=== PATIENT | female | born 1970 | race American Indian/Alaskan Native ===

== ENCOUNTER 2017-03-22 08:26 | Outpatient (CLI) | payer BC ==
[2017-03-22 09:06] LABS: Alanine Aminotransferase 8 units/L (7-56); Albumin 4.1 g/dL (3.9-5); Albumin/Globulin Ratio 1.3 %; Alkaline Phosphatase 47 units/L (35-129); Anion Gap 15 mmol/L; Blood Urea Nitrogen 9 mg/dL (7-17); Calcium 9.2 mg/dL (8.4-10.2); Carbon Dioxide 27 mmol/L (22-30); Chloride 102.7 mmol/L (98-107); Cholesterol 144 mg/dL (50-199); Glucose 101 mg/dL (65-100); HDL Cholesterol 69 mg/dL (40-59); LDL Cholesterol,Direct 66 mg/dL (50-130); Potassium 4.1 mmol/L (3.6-5.0); Sodium 141 mmol/L (137-145); Total Protein 7.3 g/dL (6.3-8.2); Triglycerides 48 mg/dL (2-149)
== END 2017-03-22 08:27 | disposition home or self-care (01) ==
LOC: LAB 08:26
PROVIDERS: ATTEND Family Medicine
DX: I10 Essential (primary) hypertension (principal)
CPT/HCPCS: 36415; 80053; 80061

== ENCOUNTER 2018-04-22 08:12 | Outpatient (CLI) | payer BC ==
--- NOTE | 2018-04-22 14:02 | Mammography Report ---
BILATERAL DIGITAL SCREENING MAMMOGRAM with CAD: 04/22/18 08:12:00 CLINICAL: Routine screening. COMPARISON:12/28/14 and 11/25/11 FINDINGS: The breasts are heterogeneously dense, which may obscure small masses. Bilateral parenchymal asymmetries require additional imaging.No architectural distortion or suspicious calcifications. IMPRESSION: Bilateral asymmetries requiring further workup. BI-RADS CATEGORY: 0 -- Additional Imaging Evaluation Required RECOMMENDATION: Recall for bilateral lateralmedial , spot and spot pression CC and MLO views and bilateral breast ultrasound if needed. ACR BI-RADS MAMMOGRAPHIC CODES: 0 = Needs additional imaging evaluation; 1 = Negative; 2 = Benign; 3 = Probably benign; 4 = Suspicious; 5 = Malignant; 6 = Known biopsy-proven malignancy COMMENT: 1. Dense breast tissue, i.e., adenosis, fibrocystic changes, etc., may obscure an underlying neoplasm. 2. Approximately 10% of cancers are not detected with mammography. 3. A negative mammography report should not delay biopsy if a clinically suspicious mass is present. COMMENT: Patient follow-up letters are generated via our [employer] application.
== END 2018-04-22 08:13 | disposition home or self-care (01) ==
LOC: MAMMO 08:12
PROVIDERS: ATTEND Family Medicine
DX: Z12.31 Encounter for screening mammogram for malignant neoplasm of breast (principal)
CPT/HCPCS: 77067

== ENCOUNTER 2018-04-28 12:45 | Outpatient (CLI) | payer BC ==
--- NOTE | 2018-04-28 14:51 | Ultrasound Report ---
Spot compression views of densities right and left breast and bilateral global sonogram: Spot compression views of density at the 12:00 position and density at 1:00 position left breast reveals persistence of density at 12:00 position however no density at 1:00 is visualized . Spot compression views of density right breast at Outer and inner breast and upper breast reveal reveals no evidence of mass or microcalcification. Sonographic examination reveals a simple cyst measuring 0.6 x 0.5 x 0.7 cm in diameter at 12:00 position 7 cm from nipple right breast. There is a simple cyst measuring 1.05 x 0.48 x 0.49 cm at 8:00 position 6 cm from nipple at the right breast. Sonogram of left breast reveals a simple cyst measuring 0.6x 0.45 x 0.6 cm at 2:00 o'clock 9 cm from nipple. There is simple cyst measuring 1.1 x 0.8 x 1.1 cm in diameter at 11:00 position 8 cm from nipple left breast. Impression Benign cysts at right and left breast. Appear to correspond to the density seen on mammogram. Annual followup with mammogram and if necessary sonogram recommended. BI-RADS CATEGORY: 2 = Benign ACR BI-RADS MAMMOGRAPHIC CODES: 0 = Needs additional imaging evaluation; 1 = Negative; 2 = Benign; 3 = Probably benign; 4 = Suspicious; 5 = Malignant; 6 = Known biopsy-proven malignancy COMMENT: 1. Dense breast tissue, i.e., adenosis, fibrocystic changes, etc., may obscure an underlying neoplasm. 2. Approximately 10% of cancers are not detected with mammography. 3. A negative mammography report should not delay biopsy if a clinically suspicious mass is present. COMMENT: Patient follow-up letters are generated in [employer].
== END 2018-04-28 12:46 | disposition home or self-care (01) ==
LOC: MAMMO 12:45
PROVIDERS: ATTEND Family Medicine
DX: N60.02 Solitary cyst of left breast (principal); N60.01 Solitary cyst of right breast
CPT/HCPCS: 77066

== ENCOUNTER 2018-09-09 08:12 | Outpatient (CLI) | payer BC ==
--- NOTE | 2018-09-10 06:47 | Vascular Lab Report ---
PROCEDURE: US BILATERAL LOWER EXTREMITY VENOUS DUPLEX DOPPLER TECHNIQUE: Duplex Doppler ultrasound of the bilateral common and superficial femoral, popliteal, pos terior tibial, and proximal deep femoral and greater saphenous veins was attempted. [place] scale imagin g with and without compression, spectral waveform analysis with and without augmentation, and color f low Doppler were employed. HISTORY: Pain and swelling COMPARISONS: None . FINDINGS: Right leg: Deep Venous Thrombus: None . Superficial Venous Thrombus: None . Venous valvular incompetence: Deep venous reflux at the right common femoral vein at 2025 ms . Soft tissue abnormality: None . Other: None . Left leg: Deep Venous Thrombus: None . Superficial Venous Thrombus: None . Venous valvular incompetence: Deep venous reflux in the left common femoral vein at 1725 ms. Superfi cial venous reflux in the left saphenofemoral junction at 692 ms and left greater saphenous vein at 2 142 ms. Soft tissue abnormality: None . Other: Left greater saphenous vein diameter measures 6.2 mm in the proximal thigh, 5.2 mm in the mid thigh, 4.2 mm in the distal thigh, 4 mm at the knee, 3.7 mm at the proximal calf, 2.7 mm at the mid calf, 2.3 mm at the distal calf and 3.2 mm at the ankle. . IMPRESSION: No evidence of deep venous thrombosis . There is deep venous reflux in the common femoral veins bilaterally. There is superficial venous reflux in the left saphenofemoral junction and greater saphenous vein. This document is electronically signed by Jerome Dixon MD., September 10 2018 06:45:05 AM [email or web address]
== END 2018-09-09 08:13 | disposition home or self-care (01) ==
LOC: VAS 08:12
PROVIDERS: ATTEND Radiology Diagnostic Radiology
DX: I87.323 Chronic venous hypertension (idiopathic) with inflammation of bilateral lower extremity (principal)
CPT/HCPCS: 93970

== ENCOUNTER 2019-07-14 08:40 | Outpatient (CLI) | payer BC ==
[2019-07-14 08:56] LABS: Hematocrit 39.5 % (30.3-42.9); Hemoglobin 12.6 gm/dl (10.1-14.3); Mean Corpuscular HGB Conc 32 % (30-34); Mean Corpuscular Volume 77 fl (79-97); Platelet Count 221 K/mm3 (140-440); Red Blood Count 5.12 M/mm3 (3.65-5.03); Red Cell Distribution Width 17.1 % (13.2-15.2)
[2019-07-14 09:25] LABS: Alanine Aminotransferase 10 units/L (7-56); BUN/Creatinine Ratio 10; Blood Urea Nitrogen 7 mg/dL (7-17); Calcium 9.3 mg/dL (8.4-10.2); Chol/HDL Ratio 2.96 %; HDL Cholesterol 53 mg/dL (40-59); Hemolysis Index 2; LDL Cholesterol,Direct 98 mg/dL (50-130)
== END 2019-07-14 08:41 | disposition home or self-care (01) ==
LOC: LAB 08:40
PROVIDERS: ATTEND Family Medicine
DX: Z00.00 Encounter for general adult medical examination without abnormal findings (principal)
CPT/HCPCS: 36415; 80053; 80061; 83036; 84443; 85027

== ENCOUNTER 2019-08-15 15:02 | Outpatient (CLI) | payer BC ==
--- NOTE | 2019-08-15 15:46 | XRay Report ---
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 COMPARISON: None available. FINDINGS: No fracture or other significant abnormality. Signer Name: Juaquin Hernandez MD Signed: 08/15/2019 3:42 PM Workstation Name: [id number]
== END 2019-08-15 15:03 | disposition home or self-care (01) ==
LOC: XRAY 15:02
PROVIDERS: ATTEND Podiatrist Foot & Ankle Surgery
DX: D49.2 Neoplasm of unspecified behavior of bone, soft tissue, and skin (principal); G60.8 Other hereditary and idiopathic neuropathies

== ENCOUNTER 2020-03-20 15:45 | Outpatient (CLI) | payer BC ==
[2020-03-20 16:17] LABS: Basophils % (Auto) 0.4 % (0.0-1.8); Eosinophils # (Auto) 0.3 K/mm3 (0.0-0.4); Eosinophils % (Auto) 3.6 % (0.0-4.3); Hematocrit 38.2 % (30.3-42.9); Hemoglobin 12.2 gm/dl (10.1-14.3); Lymphocytes # (Auto) 2.7 K/mm3 (1.2-5.4); Lymphocytes % (Auto) 34.4 % (13.4-35.0); Mean Corpuscular HGB Conc 32 % (30-34); Mean Corpuscular Volume 78 fl (79-97); Monocytes # (Auto) 0.5 K/mm3 (0.0-0.8); Monocytes % (Auto) 6.4 % (0.0-7.3); Platelet Count 243 K/mm3 (140-440); Red Blood Count 4.91 M/mm3 (3.65-5.03); Red Cell Distribution Width 17.1 % (13.2-15.2)
[2020-03-20 16:42] LABS: Alanine Aminotransferase 11 units/L (7-56); Albumin 4.6 g/dL (3.9-5); Blood Urea Nitrogen 10 mg/dL (7-17); Calcium 9.7 mg/dL (8.4-10.2); Chol/HDL Ratio 3.21 %; HDL Cholesterol 61 mg/dL (40-59); Hemolysis Index 0; LDL Cholesterol,Direct 114 mg/dL (50-130)
[2020-03-20 16:46] LABS: BUN/Creatinine Ratio 17
== END 2020-03-20 15:46 | disposition home or self-care (01) ==
LOC: LAB 15:45
PROVIDERS: ATTEND Physician Assistant
DX: I10 Essential (primary) hypertension (principal)
CPT/HCPCS: 36415; 80053; 80061; 85025

== ENCOUNTER 2020-07-10 08:34 | Outpatient (CLI) | payer BC ==
[2020-07-10 10:02] LABS: Basophils % (Auto) 0.5 % (0.0-1.8); Eosinophils # (Auto) 0.2 K/mm3 (0.0-0.4); Eosinophils % (Auto) 3.2 % (0.0-4.3); Hematocrit 34.9 % (30.3-42.9); Hemoglobin 11.8 gm/dl (10.1-14.3); Lymphocytes % (Auto) 33.8 % (13.4-35.0); Mean Corpuscular HGB Conc 34 % (30-34); Mean Corpuscular Volume 76 fl (79-97); Monocytes # (Auto) 0.4 K/mm3 (0.0-0.8); Monocytes % (Auto) 6.5 % (0.0-7.3); Platelet Count 228 K/mm3 (140-440); Red Blood Count 4.58 M/mm3 (3.65-5.03); Red Cell Distribution Width 16.9 % (13.2-15.2)
[2020-07-10 10:29] LABS: Alanine Aminotransferase 11 units/L (7-56); Albumin 4.2 g/dL (3.9-5); Blood Urea Nitrogen 7 mg/dL (7-17); Calcium 9.3 mg/dL (8.4-10.2); HDL Cholesterol 60 mg/dL (40-59); Hemolysis Index 0; LDL Cholesterol,Direct 99 mg/dL (50-130)
[2020-07-10 10:43] LABS: BUN/Creatinine Ratio 12
== END 2020-07-10 08:35 | disposition home or self-care (01) ==
LOC: LAB 08:34
PROVIDERS: ATTEND Family Medicine
DX: Z13.1 Encounter for screening for diabetes mellitus (principal); Z00.00 Encounter for general adult medical examination without abnormal findings
CPT/HCPCS: 36415; 80053; 80061; 83036; 84443; 85025

== ENCOUNTER 2021-09-30 08:45 | Outpatient (CLI) | payer BC ==
--- NOTE | 2021-10-01 09:58 | Mammography Report ---
DIGITAL SCREENING MAMMOGRAM WITH CAD, 09/30/2021 CLINICAL INFORMATION / INDICATION: Routine screening mammography. SCREENING MAMMO Z12.31 TECHNIQUE: Digital bilateral 2D mammography was obtained in the craniocaudal and mediolateral obliqu e projections. This examination was interpreted with the benefit of Computer-Aided Detection analysis . COMPARISON: 04/22/2018. FINDINGS: Breast Density: The breasts are heterogeneously dense, which may obscure small masses. No dominant mass, suspicious calcifications, or architectural distortion in either breast. Bilateral benign changing nodularity. IMPRESSION: No mammographic evidence of malignancy. Follow up recommendation: Routine yearly BI-RADS Category 2: BENIGN. A "normal" or negative report should not discourage follow up or biopsy of a clinically significant f inding. A written summary of these findings will be mailed to the patient. The patient will be entered into a mammography reporting system which will generate a reminder letter for the patient's next appointmen t at the appropriate interval. The [employer] recommends yearly mammograms starting at age 40 and continuing as l juan diego as a woman is in good health. Breast MRI is recommended for women with an approximate 20-25% or greater lifetime risk of breast cancer, including women with a strong family history of breast or ova brittney cancer or who have been treated for Hodgkin's disease. Signer Name: Andres Nicole MD Signed: 10/01/2021 9:54 AM Workstation Name: [id number]
== END 2021-09-30 08:46 | disposition home or self-care (01) ==
LOC: SPVWC 08:45
PROVIDERS: ATTEND Family Medicine
DX: Z12.31 Encounter for screening mammogram for malignant neoplasm of breast (principal); N64.89 Other specified disorders of breast
CPT/HCPCS: 77067

== ENCOUNTER 2021-12-12 13:24 | Outpatient (CLI) | payer BC ==
[2021-12-12 14:00] LABS: Basophils % (Auto) 0.7 % (0.0-1.8); Eosinophils # (Auto) 0.2 K/mm3 (0.0-0.4); Eosinophils % (Auto) 2.7 % (0.0-4.3); Hemoglobin 12.4 gm/dl (10.1-14.3); Lymphocytes # (Auto) 2.2 K/mm3 (1.2-5.4); Lymphocytes % (Auto) 33.1 % (13.4-35.0); Mean Corpuscular HGB Conc 33 % (30-34); Mean Corpuscular Volume 76 fl (79-97); Monocytes # (Auto) 0.5 K/mm3 (0.0-0.8); Monocytes % (Auto) 6.9 % (0.0-7.3); Platelet Count 244 K/mm3 (140-440); Red Blood Count 4.97 M/mm3 (3.65-5.03); Red Cell Distribution Width 16.7 % (13.2-15.2)
[2021-12-12 14:24] LABS: Alanine Aminotransferase 8 units/L (7-56); Albumin 4.7 g/dL (3.9-5); BUN/Creatinine Ratio 11; Blood Urea Nitrogen 10 mg/dL (7-17); Calcium 9.5 mg/dL (8.4-10.2); Chol/HDL Ratio 2.71 %; HDL Cholesterol 69 mg/dL (40-59); Hemolysis Index 3; LDL Cholesterol,Direct 106 mg/dL (50-130)
== END 2021-12-12 13:25 | disposition home or self-care (01) ==
LOC: LAB 13:24
PROVIDERS: ATTEND Family Medicine
DX: Z00.00 Encounter for general adult medical examination without abnormal findings (principal); Z13.1 Encounter for screening for diabetes mellitus
CPT/HCPCS: 36415; 80053; 80061; 83036; 84443; 85025